=== PATIENT | female | born 1980 | race Caucasian/White ===

== ENCOUNTER 2019-07-13 13:00 | Inpatient (IN) ==
[~2019-07-13 13:00] MED LIST: LIDOCAINE W/ SODIUM BICARB 0.5 ML SYR SUBD ONE; Lactated Ringers 1,000 ML PRIMARY IV ONE; Nasal Sanitizer POPSWAB ampule 3 AMP (Nozin) PREOP DOSE ENOS SCH; Vancomycin 1.5 gm (Premix) 1.5 GM/300 ML PIGGYBACK IV ONE; Vancomycin-PHA to Dose IV PRN; ceFAZolin Inj 2gm (Premix) 2 GM/50 ML BAG IV ONE
[2019-09-15] MEDS ORDERED: Lactated Ringers 1,000 ML PRIMARY IV ONE ×3 (06:00→18:29)
[2019-09-15] MEDS ORDERED: LIDOCAINE W/ SODIUM BICARB 0.5 ML SYR SUBD ONE (06:00)
[2019-09-15] MEDS ORDERED: Vancomycin-PHA to Dose IV PRN (06:00)
[2019-09-15] MEDS ORDERED: ceFAZolin Inj 2gm (Premix) 2 GM/50 ML BAG IV ONE ×2 (06:00→10:53)
[2019-09-15] MEDS ORDERED: Nasal Sanitizer POPSWAB ampule 3 AMP (Nozin) PREOP DOSE ENOS SCH (06:00)
[2019-09-15] MEDS ORDERED: Vancomycin 1.5 gm (Premix) 1.5 GM/300 ML PIGGYBACK IV ONE ×2 (10:53→12:15)
[2019-09-15] MEDS ORDERED: LIDOCAINE W/ SODIUM BICARB 0.5 ML SYR ONE (10:53)
[2019-09-15] MEDS ORDERED: HYDROmorphone 2 MG/1 ML ONE ×6 (12:29→19:21)
[2019-09-15] MEDS: HYDROmorphone 2 MG/1 ML IVP PRN ×8 (12:32→19:20)
[2019-09-15] MEDS ORDERED: BACITRACIN 50,000 UNIT VIAL IRRIG ONE (12:51)
[2019-09-15] MEDS ORDERED: Sodium Chloride 0.9% vial 20 ML ONE (12:51)
[2019-09-15] MEDS ORDERED: THROMBIN (BOVINE) 20,000 UNIT KIT TOPICAL ONE (12:52)
[2019-09-15] MEDS ORDERED: Vancomycin Inj 1gm vial ONE (12:53)
[2019-09-15] MEDS ORDERED: MIDAZOLAM 5 MG/1 ML ONE (13:26)
[2019-09-15] MEDS ORDERED: fentaNYL Inj 250 MCG/5 ML VIAL ONE (13:26)
[2019-09-15] MEDS ORDERED: REMIFENTANIL HCL 5 MG VIAL IV ONE (13:26)
[2019-09-15] MEDS ORDERED: Propofol 1,000 MG/100 ML VIAL IV ONE (13:28)
[2019-09-15] MEDS ORDERED: Sodium Chloride 0.9% 250 ML ONE (13:28)
[2019-09-15] MEDS ORDERED: KETAMINE 100 MG/1 ML - 5 ML ONE (14:42)
[2019-09-15] MEDS ORDERED: LIDOCAINE HCL 2 % 10 ML JELLY URO-JECT TOPICAL PRN (14:52)
[2019-09-15] MEDS ORDERED: DIAZEPAM 10 MG/2 ML (5 MG/1 ML) CARPUJECT ONE ×2 (18:09→18:51)
[2019-09-15] MEDS: DIAZEPAM 10 MG/2 ML (5 MG/1 ML) CARPUJECT IVP PRN ×3 (18:10→18:55)
[2019-09-15] MEDS ORDERED: LIDOCAINE W/ SODIUM BICARB 0.5 ML SYR SUBD PRN (18:15)
[2019-09-15] MEDS ORDERED: DEXAMETHASONE PF 10 MG/1 ML VIAL IVP ONE (18:17)
[2019-09-15] MEDS ORDERED: DIAZEPAM 10 MG/2 ML (5 MG/1 ML) CARPUJECT IVP PRN (18:20)
[2019-09-15] MEDS ORDERED: LABETALOL 20 MG/4 ML (5 MG/1 ML) SYRINGE IVP PRN (19:34)
[2019-09-15] MEDS ORDERED: CALCIUM CARBONATE 500 MG (TUMS) CHEWABLE TABLET PO PRN (19:34)
[2019-09-15] MEDS ORDERED: HYDRALAZINE 20 MG/1 ML IVP PRN (19:34)
[2019-09-15] MEDS ORDERED: DOCUSATE 100 MG CAPSULE PO PRN (19:34)
[2019-09-15] MEDS ORDERED: Zolpidem Tab 5 MG TAB PO PRN (19:34)
[2019-09-15] MEDS ORDERED: ONDANSETRON 4 MG/2 ML VIAL IVP PRN (19:34)
[2019-09-15] MEDS ORDERED: Ondansetron ODT Tab 4 MG TAB PO PRN (19:34)
[2019-09-15] MEDS: oxyCODONE-ACETAMINOPHEN 5-325 TAB PO PRN (20:02)
[2019-09-15] MEDS: Methocarbamol Tab 500 MG TAB PO PRN ×2 (20:02→20:14)
[2019-09-15] MEDS: D5-1/2NS + 20mEq KCL 1,000 ML PRIMARY IV SCH (20:03)
[2019-09-15] MEDS: MORPHINE SULFATE 2 MG/1 ML IVP PRN (22:00)
[2019-09-15] MEDS: Zolpidem Tab 5 MG TAB PO SCH (22:15)
[2019-09-15] MEDS: ceFAZolin Inj 1 GM in Sodium Chloride 0.9% 100 ML IV SCH (22:16)
[2019-09-16] MEDS: HYDROmorphone 2 MG TABLET PO PRN ×4 (00:32→21:12)
[2019-09-16] MEDS: Methocarbamol Tab 500 MG TAB PO PRN ×3 (02:05→19:07)
[2019-09-16] MEDS: oxyCODONE-ACETAMINOPHEN 5-325 TAB PO PRN ×4 (02:22→17:00)
[2019-09-16] MEDS: MORPHINE SULFATE 2 MG/1 ML IVP PRN (03:53)
[2019-09-16] MEDS: ceFAZolin Inj 1 GM in Sodium Chloride 0.9% 100 ML IV SCH ×2 (05:25→15:51)
[2019-09-16 05:35] LABS: BASOPHILS # (AUTO) 0.01 10*3/UL; BASOPHILS % (AUTO) 0.1 % (0-1); EOSINOPHILS # (AUTO) 0 10*3/UL; EOSINOPHILS % (AUTO) 0 % (0-8); Hematocrit [HCT] 40.8 % (37.0-47.0); Hemoglobin [HGB] 13.9 g/dL (12.0-16.0); LYMPHOCYTES # (AUTO) 1.11 10*3/uL; MEAN CORPUSCULAR HGB CONC 34.1 g/dL (33-37); MEAN CORPUSCULAR VOLUME 87.7 FL (81-99); MEAN PLATELET VOLUME 10.9 FL (7.4-12.2); MONOCYTES # (AUTO) 0.62 10*3/UL (0.3-0.8); MONOCYTES % (AUTO) 3.9 % (5-15); NEUTROPHILS # (AUTO) 14.26 10*3/UL; RED BLOOD COUNT 4.65 10^6/uL (4.20-5.40)
[2019-09-16 05:40] LABS: BLOOD UREA NITROGEN 9 mg/dL (7-22); BUN/CREATININE RATIO 12.85 (6-20)
[2019-09-16 05:51] LABS: PLATELET MORPHOLOGY COMMENT NORMAL MORPHOLOGY (NORM); RBC MORPHOLOGY COMMENT NORMAL MORPHOLOGY (NORM); WBC MORPHOLOGY COMMENT NORMAL MORPHOLOGY (NORM)
[2019-09-16] MEDS: HYDROCHLOROTHIAZIDE 12.5 MG CAPSULE PO SCH (06:59)
[2019-09-16] MEDS: HYDROCHLOROTHIAZIDE 25 MG TABLET PO SCH (07:00)
[2019-09-16] MEDS: KETOROLAC 15 MG/1 ML VIAL IVP SCH ×2 (08:44→10:56)
[2019-09-16] MEDS: ACETAMINOPHEN 325 MG TABLET PO PRN (08:45)
[2019-09-16] MEDS: D5-1/2NS + 20mEq KCL 1,000 ML PRIMARY IV SCH ×2 (08:47→16:35)
[2019-09-16] MEDS: MORPHINE SULFATE 4 MG/1 ML IVP PRN ×3 (10:50→19:07)
[2019-09-16] MEDS: KETOROLAC 30 MG/1 ML VIAL IM SCH ×3 (10:55→22:39)
[2019-09-16] MEDS ORDERED: Sodium Chloride 0.9% 50 ML ONE (11:34)
[2019-09-16] MEDS ORDERED: oxyCODONE/APAP 10/325 Tab 1 EACH TAB PO PRN (20:39)
[2019-09-16] MEDS: Zolpidem Tab 5 MG TAB PO SCH (21:07)
[2019-09-16] MEDS: SULFAMETHOXAZOLE/TRIMETHOPRIM 800/160 MG TABLET PO SCH (21:07)
[2019-09-17] MEDS: HYDROmorphone 2 MG TABLET PO PRN ×5 (01:01→20:55)
[2019-09-17] MEDS: Methocarbamol Tab 500 MG TAB PO PRN ×3 (03:22→18:15)
[2019-09-17] MEDS: MORPHINE SULFATE 4 MG/1 ML IM PRN ×2 (03:22→05:14)
[2019-09-17] MEDS: KETOROLAC 30 MG/1 ML VIAL IM SCH ×4 (04:35→22:41)
[2019-09-17] MEDS: HYDROCHLOROTHIAZIDE 12.5 MG CAPSULE PO SCH (07:23)
[2019-09-17] MEDS: HYDROCHLOROTHIAZIDE 25 MG TABLET PO SCH (07:23)
[2019-09-17] MEDS: SULFAMETHOXAZOLE/TRIMETHOPRIM 800/160 MG TABLET PO SCH ×2 (08:50→20:54)
[2019-09-17] MEDS: ACETAMINOPHEN 325 MG TABLET PO PRN (19:45)
[2019-09-17] MEDS: Zolpidem Tab 5 MG TAB PO SCH (22:40)
[2019-09-18] MEDS: Methocarbamol Tab 500 MG TAB PO PRN ×3 (00:17→13:34)
[2019-09-18] MEDS: HYDROmorphone 2 MG TABLET PO PRN ×4 (00:59→13:34)
[2019-09-18] MEDS: ACETAMINOPHEN 325 MG TABLET PO PRN (01:02)
[2019-09-18] MEDS: KETOROLAC 30 MG/1 ML VIAL IM SCH ×2 (05:00→11:11)
[2019-09-18] MEDS: HYDROCHLOROTHIAZIDE 25 MG TABLET PO SCH (07:15)
[2019-09-18] MEDS: HYDROCHLOROTHIAZIDE 12.5 MG CAPSULE PO SCH (07:16)
[2019-09-18 07:56] VITALS: BP 132/81; RESP 18; TEMP 97.9; O2SAT 95
[2019-09-18] MEDS: SULFAMETHOXAZOLE/TRIMETHOPRIM 800/160 MG TABLET PO SCH (08:58)
[2019-09-18] MEDS ORDERED: HYDROmorphone Tab 4 MG TAB PO ONE ×2 (13:48→13:53)
[2019-09-18] MEDS ORDERED: HYDROmorphone 2 MG TABLET PO ONE (14:15)
== END 2019-09-18 14:14 | disposition home or self-care (01) | DRG 460 ==
LOC: OPS 09-15 10:44 → MED/SURG 09-15 19:32
PROVIDERS: ADMIT Neurological Surgery; ATTEND Neurological Surgery